=== PATIENT | male | born 1935 | race Caucasian/White ===

== ENCOUNTER 2016-05-13 13:30 | Outpatient (RCR) | payer MEDICARE, MEDICAID ==
[2016-02-26 15:47] VITALS: BP 167/90; PULSE 86; TEMP 97.9
[2016-03-12 13:14] VITALS: BP 160/79; PULSE 95; TEMP 97.6
[2016-03-30 14:28] VITALS: BP 155/88; PULSE 85; TEMP 97
[2016-04-14 12:43] VITALS: BP 141/70; PULSE 89; TEMP 97.1
[2016-04-29 14:06] VITALS: BP 139/70; PULSE 91; TEMP 97.9
[~2016-05-13] VITALS: Ht 170.2 cm; Wt 77.3 kg
[2016-05-13 13:27] VITALS: BP 149/80; PULSE 88; TEMP 97.7
[~2016-05-13 13:30] MED LIST: 00186-0370-20 IH; ALBUTEROL0.83 MG/ML IH; CELEXA 20MG20 MG/TAB PO; CLARITIN 1010 MG/TAB PO; EPIPEN 2-PAK1 MG/ML IM; ERY-TAB500 MG PO; FLEXERIL 1010 MG/TAB PO; FLONASE NASAL S16 GM NS; IMODIUM 2MG CAPS2 MG PO; KLONOPIN2 MG PO; LASIX 20MG TABL20 MG; LIPITOR20 MG PO; MUCINEX DM 60 M1 TER PO; MULTIPLE VITAMI1 CAP PO; OXYGEN; PREDNISONE10 MG PO; PREDNISONE20 MG PO; PROAIR HFA0.09 MG/AC; PROAIR HFA0.09 MG/AC IH; RT ADVAIR HFA 2312 G IH; RT SPIRIVA18 MCG IH; SINGULAIR 110 MG/TAB PO; TESSALON P100 MG/CAP PO; ULTRAM 50MG TAB50 MG PO; VITAMIN D32000 I1 PO; XOLAIR150 MG SQ; ZANTAC 150MG T150 MG PO; ZITHROMAX 250M250 MG PO; ZOCOR5 MG PO; ZOFRAN 4MG T4 MG/TAB PO; [UNRECOGNIZED DRUG - OTHER]
== END 2016-05-26 | disposition home or self-care (01) ==
LOC: EUO
DX: J45.50 Severe persistent asthma, uncomplicated (principal)
CPT/HCPCS: J2357

== ENCOUNTER 2016-08-20 14:00 | Outpatient (RCR) | payer MEDICARE, MEDICAID ==
[2016-05-27 14:26] VITALS: BP 175/89; PULSE 82; TEMP 98
[2016-06-10 11:51] VITALS: BP 133/61; PULSE 81; TEMP 98.2
[2016-06-24 13:31] VITALS: BP 165/81; PULSE 83; TEMP 97.5
[2016-07-09 13:42] VITALS: BP 150/68; PULSE 83; TEMP 97.4
[2016-07-22 14:23] VITALS: BP 153/74; PULSE 85; TEMP 98.3
[2016-08-06 14:28] VITALS: BP 147/56; PULSE 99; TEMP 98.1
[~2016-08-20] VITALS: Ht 170.2 cm; Wt 81.8 kg
[2016-08-20 14:32] VITALS: BP 188/67; PULSE 98; TEMP 97.3
== END 2016-08-25 | disposition home or self-care (01) ==
LOC: EUO
DX: J45.50 Severe persistent asthma, uncomplicated (principal)
CPT/HCPCS: J2357

== ENCOUNTER 2016-11-19 14:00 | Outpatient (RCR) | payer MEDICARE, MEDICAID ==
[2016-09-02 13:46] VITALS: BP 143/72; PULSE 90; TEMP 97.8
[2016-09-20 14:01] VITALS: BP 136/55; PULSE 97; TEMP 98
[2016-10-05 14:51] VITALS: BP 147/74; PULSE 87; TEMP 97.8
[2016-10-20 14:48] VITALS: BP 166/90; PULSE 81; TEMP 97.7
[2016-11-03 15:02] VITALS: BP 162/62; PULSE 100; TEMP 97.8
== END 2016-12-01 | disposition still patient (30) ==
LOC: EUO
DX: J45.50 Severe persistent asthma, uncomplicated (principal); Z79.899 Other long term (current) drug therapy
CPT/HCPCS: J2357

== ENCOUNTER 2017-02-21 13:30 | Outpatient (RCR) | payer MEDICARE, MEDICAID ==
[2016-12-03 14:25] VITALS: BP 141/67; PULSE 94; TEMP 98.4
[2016-12-21 13:42] VITALS: BP 151/83; PULSE 89; TEMP 98.1
[2017-01-04 13:49] VITALS: BP 129/58; PULSE 82; TEMP 98.1
[2017-01-19 14:32] VITALS: BP 140/53; PULSE 91; TEMP 98.1
[2017-02-04 15:50] VITALS: BP 145/59; PULSE 101; TEMP 98.1
[~2017-02-21] VITALS: Ht 170.2 cm; Wt 81.8 kg
[2017-02-21 14:13] VITALS: BP 152/78; PULSE 83; TEMP 98.2
== END 2017-02-21 14:15 | disposition home or self-care (01) ==
LOC: EUO 13:30
DX: J45.50 Severe persistent asthma, uncomplicated (principal); Z79.899 Other long term (current) drug therapy
CPT/HCPCS: J2357

== ENCOUNTER 2017-04-05 13:00 | Outpatient (RCR) | payer MEDICARE, MEDICAID ==
[2017-03-07 15:00] VITALS: BP 151/81; PULSE 96; TEMP 97.8
[2017-03-21 13:41] VITALS: BP 148/82; PULSE 90; TEMP 98.5
[~2017-04-05] VITALS: Ht 170.2 cm; Wt 81.8 kg
[2017-04-05 14:54] VITALS: BP 156/78; PULSE 86; TEMP 97.6
== END 2017-04-05 15:51 | disposition home or self-care (01) ==
LOC: EUO 13:00
DX: J45.50 Severe persistent asthma, uncomplicated (principal); Z79.899 Other long term (current) drug therapy
CPT/HCPCS: J2357

== ENCOUNTER 2017-06-21 13:00 | Outpatient (RCR) | payer MEDICARE, MEDICAID ==
[2017-04-21 13:24] VITALS: BP 159/77; PULSE 82; TEMP 98.2
[2017-05-05 13:04] VITALS: BP 162/77; PULSE 85; TEMP 97.8
[2017-05-23 13:26] VITALS: BP 178/81; PULSE 99
[2017-06-06 13:32] VITALS: BP 167/71; PULSE 96; TEMP 97.9
[~2017-06-21] VITALS: Ht 167.6 cm; Wt 80.7 kg
[2017-06-21 14:40] VITALS: BP 148/67; PULSE 96; TEMP 97.5
== END 2017-07-20 ==
LOC: EUO
DX: J45.50 Severe persistent asthma, uncomplicated (principal); Z79.899 Other long term (current) drug therapy
CPT/HCPCS: J2357

== ENCOUNTER 2017-11-11 13:00 | Outpatient (RCR) | payer MEDICARE, MEDICAID ==
[2017-08-17 15:57] VITALS: BP 167/79; PULSE 57; TEMP 97.9
[2017-09-02 14:29] VITALS: BP 159/67; PULSE 98
[2017-09-15 14:30] VITALS: BP 146/84; PULSE 90; TEMP 98
[2017-09-30 13:57] VITALS: BP 153/61; PULSE 102; TEMP 98
[2017-10-14 13:30] VITALS: BP 146/76; PULSE 84; TEMP 97.3
[2017-10-28 14:00] VITALS: BP 130/78; PULSE 90; TEMP 97.2
[~2017-11-11] VITALS: Ht 167.6 cm; Wt 81.6 kg
[2017-11-11 15:26] VITALS: BP 142/64; PULSE 91; TEMP 98.2
== END 2017-11-15 | disposition still patient (30) ==
LOC: EUO
DX: J45.50 Severe persistent asthma, uncomplicated (principal); Z79.899 Other long term (current) drug therapy
CPT/HCPCS: J2357

== ENCOUNTER 2018-02-16 11:00 | Outpatient (RCR) | payer MEDICARE, MEDICAID ==
[2017-11-25 11:01] VITALS: BP 145/79; PULSE 87
[2017-12-09 11:20] VITALS: BP 169/81; PULSE 89; TEMP 98.6
[2017-12-23 12:03] VITALS: BP 140/74; PULSE 75; TEMP 98
[2018-01-06 11:21] VITALS: BP 148/73; PULSE 86; TEMP 97.5
[2018-01-19 11:21] VITALS: BP 166/89; PULSE 80; TEMP 97.8
[2018-02-02 11:06] VITALS: BP 150/75; PULSE 78; TEMP 97.9
[~2018-02-16] VITALS: Ht 167.6 cm; Wt 83.0 kg
[2018-02-16 10:47] VITALS: BP 157/75; PULSE 87; TEMP 97.9
== END 2018-02-16 12:00 | disposition home or self-care (01) ==
LOC: EUO 11:00
DX: J45.50 Severe persistent asthma, uncomplicated (principal)
CPT/HCPCS: J2357

== ENCOUNTER 2018-04-27 11:00 | Outpatient (RCR) | payer MEDICARE, MEDICAID ==
[2018-03-03 11:11] VITALS: BP 159/74; PULSE 86; TEMP 97.3
[2018-03-16 11:37] VITALS: BP 134/78; PULSE 58; TEMP 98.3
[2018-03-30 11:51] VITALS: BP 154/71; PULSE 95; TEMP 97.3
[2018-04-13 10:56] VITALS: BP 165/91; PULSE 94; TEMP 97.8
[~2018-04-27] VITALS: Ht 167.6 cm; Wt 81.5 kg
[2018-04-27 11:53] VITALS: BP 154/67; PULSE 81; TEMP 97.3
[2018-05-11 10:47] VITALS: BP 156/84; PULSE 86; TEMP 97.6
== END 2018-05-11 10:54 | disposition home or self-care (01) ==
LOC: EUO 11:00
DX: J45.50 Severe persistent asthma, uncomplicated (principal)
CPT/HCPCS: J2357

== ENCOUNTER 2018-07-20 11:00 | Outpatient (RCR) | payer MEDICARE, MEDICAID ==
[2018-05-11 11:19] VITALS: BP 156/84; PULSE 86; TEMP 97.6
[2018-05-26 10:38] VITALS: BP 167/84; PULSE 57; TEMP 97.6
[2018-06-08 11:30] VITALS: BP 149/82; PULSE 80; TEMP 98.1
[2018-06-29 10:55] VITALS: BP 137/83; PULSE 88
[~2018-07-20] VITALS: Ht 167.6 cm; Wt 81.0 kg
[2018-07-20 10:51] VITALS: BP 127/56; PULSE 95; TEMP 98.6
--- NOTE | 2018-07-20 12:18 | NUR ---
Cassandra had injection at 1037.Per pts normal routine he waits in Radiology waiting room for several hours waiting for [employer] bus to take him back home.Patient ate meal while waiting per normal routine.Patient ambulated back to [facility] at 1159 complaining of being "unable to move my hand." Patient is able to move hands bilaterally for this nurse.Patient assisted into wheelchair.Patient requests to be seen in ED.This nurse called ED charge nurse.Per pt request he was taken to ER to be checked in.
== END 2018-08-09 | disposition home or self-care (01) ==
LOC: EUO
DX: J45.50 Severe persistent asthma, uncomplicated (principal)
CPT/HCPCS: J2357

== ENCOUNTER 2018-07-20 12:02 | Emergency (ER) | payer MEDICARE, MEDICAID ==
[~2018-07-20] VITALS: Ht 167.6 cm; Wt 82.3 kg
[2018-07-20 12:09] VITALS: BP 127/60; TEMP 98.3
[2018-07-20 13:10] VITALS: PULSE 99
== END 2018-07-20 13:10 | disposition home or self-care (01) ==
LOC: COL.ER 12:02
DX: R25.2 Cramp and spasm (principal); F41.9 Anxiety disorder, unspecified; J44.9 Chronic obstructive pulmonary disease, unspecified; F17.210 Nicotine dependence, cigarettes, uncomplicated; Z79.51 Long term (current) use of inhaled steroids

== ENCOUNTER 2018-11-02 11:00 | Outpatient (RCR) | payer MEDICARE, MEDICAID ==
[2018-08-10 10:31] VITALS: BP 130/64; PULSE 88; TEMP 97.6
[2018-08-24 10:52] VITALS: BP 144/80; PULSE 85; TEMP 97.3
[2018-09-07 10:51] VITALS: BP 162/79; PULSE 90; TEMP 98.8
[2018-09-21 12:20] VITALS: BP 145/66; PULSE 83; TEMP 97.6
[2018-10-05 10:59] VITALS: BP 160/80; PULSE 88; TEMP 97.9
[2018-10-18 11:10] VITALS: BP 158/78; PULSE 88; TEMP 97
[~2018-11-02] VITALS: Ht 167.6 cm; Wt 81.6 kg
[2018-11-02 10:34] VITALS: BP 143/65; PULSE 89; TEMP 97.9
[~2018-11-02 11:00] MED LIST changes: +ZANTAC 150150 MG PO
== END 2018-11-02 12:32 | disposition home or self-care (01) ==
LOC: EUO 11:00
DX: J45.50 Severe persistent asthma, uncomplicated (principal); Z79.899 Other long term (current) drug therapy
CPT/HCPCS: J2357

== ENCOUNTER 2019-02-01 11:00 | Outpatient (RCR) | payer MEDICARE, MEDICAID ==
[2018-11-16 11:08] VITALS: BP 166/86; PULSE 88; TEMP 97.6
[2018-12-05 10:47] VITALS: BP 154/81; PULSE 92; TEMP 97.5
[2018-12-21 11:18] VITALS: BP 141/74; PULSE 86; TEMP 97.7
[2019-01-04 10:50] VITALS: BP 158/72; PULSE 91; TEMP 97.7
[2019-01-18 11:32] VITALS: BP 172/86; PULSE 99; TEMP 98.8
[~2019-02-01] VITALS: Ht 167.6 cm; Wt 81.9 kg
[2019-02-01 11:07] VITALS: BP 156/77; PULSE 86; TEMP 97.3
== END 2019-02-14 | disposition still patient (30) ==
LOC: EUO
DX: J45.50 Severe persistent asthma, uncomplicated (principal); Z79.899 Other long term (current) drug therapy
CPT/HCPCS: J2357

== ENCOUNTER 2019-04-12 11:00 | Outpatient (RCR) | payer MEDICARE, MEDICAID ==
[2019-02-15 11:20] VITALS: BP 132/73; PULSE 102; TEMP 97.9
[2019-03-01 11:12] VITALS: BP 129/59; PULSE 98; TEMP 97.5
[2019-03-14 10:42] VITALS: BP 150/73; PULSE 76; TEMP 97.5
[2019-03-29 11:04] VITALS: BP 144/75; PULSE 100; TEMP 97.4
--- NOTE | 2019-03-29 11:30 | NUR ---
Pt kalyani Xolair well. Pt left unit per ambulation.
[~2019-04-12] VITALS: Ht 167.6 cm; Wt 81.5 kg
[2019-04-12 10:27] VITALS: BP 163/73; PULSE 89; TEMP 97.6
[~2019-04-12 11:00] MED LIST changes: +PEPCID 20MG TAB20 MG PO; +PREDNISONE 5MG5 MG PO
== END 2019-04-12 11:07 | disposition home or self-care (01) ==
LOC: EUO 11:00
DX: J45.50 Severe persistent asthma, uncomplicated (principal); Z79.899 Other long term (current) drug therapy
CPT/HCPCS: J2357

== ENCOUNTER 2019-08-03 11:00 | Outpatient (RCR) | payer MEDICARE, MEDICAID ==
[~2019-08-03] VITALS: Ht 167.6 cm; Wt 80.7 kg
[2019-08-03] MEDS ORDERED: KENALOG DENTAL P5 GM DT (11:18)
[2019-08-03 11:23] VITALS: BP 139/71; PULSE 85; TEMP 97.9
== END 2019-08-06 16:38 | disposition home or self-care (01) ==
LOC: EUO 11:00
DX: J45.50 Severe persistent asthma, uncomplicated (principal); Z79.51 Long term (current) use of inhaled steroids
CPT/HCPCS: J2357

== ENCOUNTER → 2021-08-11 | Outpatient (CLI) | payer MEDICARE, MEDICAID ==
[~2021-08-11] MED LIST changes: +KENALOG DENTAL P5 GM DT
== END ==
LOC: COL.RAD 11:46
DX: J45.909 Unspecified asthma, uncomplicated (principal); I27.20 Pulmonary hypertension, unspecified
CPT/HCPCS: A9540; A9567

== ENCOUNTER 2022-05-14 12:39 | Outpatient (CLI) | payer MEDICARE, MEDICAID ==
[~2022-05-14] VITALS: Ht 167.6 cm; Wt 74.4 kg
[2022-05-14 13:11] VITALS: BP 142/80; PULSE 98; TEMP 98
== END 2022-05-14 15:35 | disposition home or self-care (01) ==
LOC: EUO 12:39
DX: J45.50 Severe persistent asthma, uncomplicated (principal); J30.9 Allergic rhinitis, unspecified
CPT/HCPCS: J2357

== ENCOUNTER 2022-05-28 12:55 | Outpatient (CLI) | payer MEDICARE, MEDICAID ==
[~2022-05-28] VITALS: Ht 167.6 cm; Wt 76.7 kg
[2022-05-28 13:57] VITALS: BP 150/66; PULSE 81; TEMP 97.4
== END 2022-05-28 14:05 ==
LOC: EUO 12:55
DX: J45.50 Severe persistent asthma, uncomplicated (principal); J30.9 Allergic rhinitis, unspecified; Z79.899 Other long term (current) drug therapy
CPT/HCPCS: J2357

== ENCOUNTER 2022-06-11 11:51 | Outpatient (CLI) | payer MEDICARE, MEDICAID ==
[2022-06-11 12:20] VITALS: BP 142/67; PULSE 81; TEMP 98.1
--- NOTE | 2022-06-11 12:44 | NUR ---
Pt tolerated injections without issue. He exits dept with steady gait.
== END 2022-06-11 12:44 | disposition home or self-care (01) ==
LOC: EUO 11:51
DX: J45.50 Severe persistent asthma, uncomplicated (principal); J30.9 Allergic rhinitis, unspecified
CPT/HCPCS: J2357

== ENCOUNTER 2022-09-17 13:06 | Outpatient (CLI) | payer MEDICARE, MEDICAID ==
[~2022-09-17] VITALS: Ht 167.6 cm; Wt 76.0 kg
[~2022-09-17 13:06] MED LIST changes: +TRAVATAN Z 2.52.5 ML OD
[2022-09-17 13:36] VITALS: BP 150/82; PULSE 73; TEMP 97.7
== END 2022-09-17 13:46 | disposition home or self-care (01) ==
LOC: EUO 13:06
DX: J45.50 Severe persistent asthma, uncomplicated (principal); J30.9 Allergic rhinitis, unspecified
CPT/HCPCS: J2357